=== PATIENT | female | born 1995 | race Caucasian/White ===

== ENCOUNTER 2018-12-19 18:22 | Inpatient (IN) | payer OTHER ==
[~2018-12-19] VITALS: Ht 154.9 cm; Wt 103.6 kg
[2018-12-19 20:28] VITALS: BP 106/52; PULSE 60; RESP 16
[2018-12-19 20:35] VITALS: Ht 154.9 cm; Wt 103.6 kg
--- NOTE | 2018-12-19 21:15 | HP ---
Date/Time of Note Date/Time of Note DATE: 12/19/18 TIME: 21:14 Assessment/Plan VTE Prophylaxis SCD applied (from Ns): Yes Pharmacological prophylaxis: NA/contraindicated Pharm contraindication: low risk/ambulating Assessment/Plan Hospital Course This is a 23-year female [facility] for: #1 symptomatic cholelithiasis: Ultrasound showed gallstones however no signs of any pericholecystic fluid or gallbladder wall thickening. At the current time we will keep the patient n.p.o. except meds, IV fluid hydration with normal saline. Put patient on Zosyn IV every 6 hours for surgical prophylaxis. Will obtain a HIDA scan to further assess, depending on the results will consult general surgery. #2 morbid obesity: We will check hemoglobin A1c, lipid panel, TSH, encourage diet and lifestyle modification #3 iron deficiency anemia: We will check iron stores, patient reportedly takes iron supplements at home, will need to confirm her dosages. #4 DVT GI prophylaxis: SCDs, no GI prophylaxis indicated Further treatment strategy will be implemented as per the clinical course. HPI/ROS Admit Date/Time Admit Date/Time Dec 19, 2018 at 20:15 Hx of Present Illness Chief complaint: Epigastric pain times 2 days This is a 23-year-old female states that 2 days ago drank 4 beers tolerating a family member's birthday and started experiencing abdominal pain.. She began having epigastric pain when she was getting ready for work yesterday. The pain lasted for a few minutes but then the pain got worse. It is nonradiating. She does report nausea. Denies any vomiting. No fevers chills or cough or sore throat. She has had this pain on and off for the last 2-3 years. Pertinent laboratory findings from transfer facility showed: White blood cells 10.4 creatinine 0.55 alk phos 103 lipase 128, leukoesterase 3+, ultrasound of the abdomen showed: Cholelithiasis without pericholecystic fluid or wall thickening or discomfort exhibited by patient. Normal duct. Allergies: NKDA Medications: See NIKKI ABRAMS Const: As per HPI Eyes : No pain discharge or redness or change in visual acuity ENT: No pain, sore throat, congestion, congestion, dysphagia or discharge Respiratory: No shortness of breath, cough, sputum, wheezing, or pleuritic pain Cardiovascular: No chest pain, palpitation, PND, or edema GI : As per HPI Genitourinary: No dysuria, hematuria, flank pain , discharge or CVA tenderness Musculoskeletal: No joint pain, back pain, neck pain, restricted range of motion in neck or joints Skin: No rash, bruising or hives Neuro: No headache, dizziness, syncope, seizure, focal weakness Endocrine: No polyuria, polydipsia, temperature intolerance Psych: No hallucination, depression, anxiety or suicidal ideation PMH/Family/Social Past Medical History Gallstones, iron deficiency anemia Medications Current Medications Sodium Chloride 1,000 ml @ 100 mls/hr Q10H IV ; Start 12/19/18 at 21:11; Status UNV IV Flush (NS 3 ml) 3 ml PER PROTOCOL IV ; Start 12/19/18 at 21:30; Status UNV Ondansetron HCl (Zofran Inj) 4 mg Q6H PRN IV NAUSEA AND/OR VOMITING; Start 12/19/18 at 21:30; Status UNV Metoclopramide HCl (Reglan) 10 mg Q6H PRN IV NAUSEA AND/OR VOMITING; Start at 21:30; Status UNV Acetaminophen (Tylenol Tab) 650 mg Q6H PRN PO PAIN LEVEL 1-3 OR FEVER; Start 12/19/18 at 21:30; Status UNV Hydromorphone HCl (Dilaudid) 0.5 mg Q4H PRN IV SEVERE PAIN LEVEL 7-10; Start 12/19/18 at 21:30; Status UNV Coded Allergies: No Known Allergies (Verified Allergy, Unknown, 12/19/18) Past Surgical History x2, cyst removal from chest wall Family History Significant Family History: no pertinent family hx Social History Alcohol Use: occasionally Smoking Status: Never smoker Drug Use: none Exam/Review of Systems Vital Signs Vitals Vital Signs Date Temp Pulse Resp B/P (MAP) Pulse Ox O2 O2 Flow FiO2 Time Delivery Rate 12/19/18 98.5 60 16 106/52 98 Room Air 20:28 (70) Exam Exam General: Patient is a pleasant female currently lying in bed in no acute distress HEENT: Atraumatic, normocephalic. The pupils are equal, round and reactive. Extraocular motor are intact Neck: Supple with full range of motion. No rigidity or meningismus Chest: Nontender Lungs: Clear to auscultation bilaterally no crackles rales or wheezing Heart: Normal S1-S2, Regular rhythm and rate. No murmur, S3, or S4 Abdomen: Morbidly obese, soft , right upper quadrant pain to palpation as well as epigastric pain to palpation, bowel sounds are present. No guarding no rebound tenderness , No masses or organomegaly. No costovertebral temporal angle mass Extremities: Normal to inspection, no edema no cyanosis Neurologic: Normal mental status, speech normal, cranial nerves II through XII are intact, motor and sensory are intact, no focal weakness RICARDO CASTANEDA Dec 19, 2018 21:15
[2018-12-19] MEDS ORDERED: METOCLOPRAMIDE 10 MG INJ IV PRN (21:30)
[2018-12-19] MEDS ORDERED: NACL 0.9% 3 ML SYG IV SCH (21:30)
[2018-12-19] MEDS ORDERED: ACETAMINOPHEN 325 MG TAB PO PRN (21:30)
[2018-12-19] MEDS: SOD CHLORIDE 0.9% 1,000 ML IV SCH (22:37)
[2018-12-19] MEDS: ONDANSETRON 4 MG INJ IV PRN (22:38)
[2018-12-19] MEDS: HYDROmorphONE 0.5 MG/0.5 ML SYG IV PRN (22:38)
[2018-12-19] MEDS: PIPER-TAZO 3.375 GM IV (PMX) 100 ML IVPB SCH (23:47)
[2018-12-20 01:32] VITALS: BP 96/51; PULSE 56; RESP 16
--- NOTE | 2018-12-20 04:50 | NUR ---
eoss: patient rested throughout the night. medicated with prn pain med,effective. no acute events overnight. afebrile. no episodes of vomitting. kept on npo. ivf running.
[2018-12-20] MEDS: PIPER-TAZO 3.375 GM IV (PMX) 100 ML IVPB SCH ×3 (05:43→17:08)
[2018-12-20] MEDS: HYDROmorphONE 0.5 MG/0.5 ML SYG IV PRN ×3 (06:04→20:22)
[2018-12-20 07:12] VITALS: BP 111/58; PULSE 72; RESP 18
[2018-12-20] MEDS ORDERED: morphine SULFATE/PF (2 MG/2 ML) SYG IV PRN (09:00)
[2018-12-20] MEDS ORDERED: HYDROCODONE/APAP (5/325) TAB PO PRN (09:00)
--- NOTE | 2018-12-20 09:20 | PN ---
Date/Time of Note Date/Time of Note DATE: 12/20/18 TIME: 09:20 Assessment/Plan VTE Prophylaxis Risk score (from Ns)>0 risk: 2 SCD applied (from Ns): Yes SCD contraindicated: low risk/ambulating Pharmacological prophylaxis: NA/contraindicated Pharm contraindication: low risk/ambulating Lines/Catheters IV Catheter Type (from Nrsg): Peripheral IV Assessment/Plan Assessment/Plan 1. Symptomatic cholelithiasis vs biliary colic - US from OSH showing gallstones but CBD normal and no sludge or GB wall thickening appreciated - HIDA scan ordered and negative for acute abnormalities - Will try feeding patient to see if able to tolerated. If not, may need to discuss case with General surgery. - pain control 2. Obesity - dietary modification encouraged 3. Iron deficiency - iron levels noted - MCV 77 - will need iron supplements on discharge 4. Disposition - Monitor improvement in abdominal pain and advance diet as tolerated. If pain persists will possible consult gen surgery Result Diagram: 12/19/18215412/[id number]/182154 Results 24hrs Laboratory Tests Test 12/19/18 21:55 White Blood Count 11.2 H Red Blood Count 4.53 Hemoglobin 11.2 L Hematocrit 35.1 L Mean Corpuscular Volume 77.5 L Mean Corpuscular Hemoglobin 24.7 L Mean Corpuscular Hemoglobin Concent 31.9 L Red Cell Distribution Width 15.1 H Platelet Count 302 Mean Platelet Volume 10.2 Immature Granulocytes % 0.300 Neutrophils % 64.8 Lymphocytes % 28.2 Monocytes % 5.0 Eosinophils % 1.5 Basophils % 0.2 Nucleated Red Blood Cells % 0.0 Immature Granulocytes # 0.030 Neutrophils # 7.2 Lymphocytes # 3.2 H Monocytes # 0.6 Eosinophils # 0.2 Basophils # 0.0 Nucleated Red Blood Cells # 0.0 Sodium Level 139 Potassium Level 3.2 L Chloride Level 107 Carbon Dioxide Level 23 Anion Gap 9 Blood Urea Nitrogen 10 Creatinine 0.51 Est Glomerular Filtrat Rate mL/min > 60 Glucose Level 82 Hemoglobin A1c 5.0 Calcium Level 8.8 Magnesium Level 2.0 Total Bilirubin 0.2 Direct Bilirubin 0.00 Indirect Bilirubin 0.2 Aspartate Amino Transf (AST/SGOT) 17 Alanine Aminotransferase (ALT/SGPT) 26 Alkaline Phosphatase 86 Total Protein 7.4 Albumin 3.8 Globulin 3.60 H Albumin/Globulin Ratio 1.05 Triglycerides Level 94 Cholesterol Level 105 LDL Cholesterol, Calculated 58 HDL Cholesterol 28 L Cholesterol/HDL Ratio 3.7 Thyroid Stimulating Hormone (TSH) 1.150 Serum HCG, Qualitative NEGATIVE Subjective 24 Hr Interval Summary Free Text/Dictation Patient still with RUQ pain but relief after given pain control. States she has been experiencing this pain for the past 2 years. worsening with food but prior to yesterdays episode had not eaten anything substantial. Exam/Review of Systems Vital Signs Vitals Vital Signs Date Temp Pulse Resp B/P (MAP) Pulse Ox O2 O2 Flow FiO2 Time Delivery Rate 12/20/18 98.2 72 18 111/58 96 07:12 (75) 12/20/18 Room Air 01:32 Intake and Output 12/19/18 12/19/18 12/20/18 1515:00 23:00 07:00 IntakeIntake Total 900 ml BalanceBalance 900 ml Exam General: Patient is a pleasant female currently lying in bed in no acute distress Chest: Nontender Lungs: Clear to auscultation bilaterally no crackles rales or wheezing Heart: Normal S1-S2, Regular rhythm and rate. No murmur, S3, or S4 Abdomen: Morbidly obese, soft , right upper quadrant pain to palpation as well as epigastric pain to palpation, bowel sounds are present. No guarding no rebound tenderness Extremities: Normal to inspection, no edema no cyanosis Medications Medications Current Medications Sodium Chloride 1,000 ml @ 100 mls/hr Q10H IV Last administered on 12/19/18at 22:37; Admin Dose 100 MLS/HR; Start 12/19/18 at 21:11 IV Flush (NS 3 ml) 3 ml PER PROTOCOL IV Last administered on 12/19/18at 22:37; Admin Dose 3 ML; Start 12/19/18 at 21:30 Ondansetron HCl (Zofran Inj) 4 mg Q6H PRN IV NAUSEA AND/OR VOMITING Last administered on 12/19/18at 22:38; Admin Dose 4 MG; Start 12/19/18 at 21:30 Metoclopramide HCl (Reglan) 10 mg Q6H PRN IV NAUSEA AND/OR VOMITING; Start 12/19/18 at 21:30 Acetaminophen (Tylenol Tab) 650 mg Q6H PRN PO PAIN LEVEL 1-3 OR FEVER Last administered on 12/20/18at 08:25; Admin Dose 650 MG; Start 12/19/18 at 21:30 Hydromorphone HCl (Dilaudid) 0.5 mg Q4H PRN IV SEVERE PAIN LEVEL 7-10 Last administered on 12/20/18at 06:04; Admin Dose 0.5 MG; Start 12/19/18 at 21:30 Piperacillin Sod/ Tazobactam Sod 100 ml @ 200 mls/hr Q6 IVPB Last administered on 12/20/18at 05:43; Admin Dose 200 MLS/HR; Start 12/20/18 at 00:00 Morphine Sulfate (morphine SULFATE (PF)) 2 mg Q4H PRN IV PAIN LEVEL 4-6; Start 12/20/18 at 09:00 Acetaminophen/ Hydrocodone Bitart ([place] (5/325)) 1 tab Q4H PRN PO MODERATE PAIN LEVEL 4-6; Start 12/20/18 at 09:00 ELAINE HERNANDEZ MD Dec 20, 2018 09:20
[2018-12-20] MEDS: SOD CHLORIDE 0.9% 1,000 ML IV SCH ×2 (11:20→17:08)
[2018-12-20] MEDS: ONDANSETRON 4 MG INJ IV PRN ×2 (14:20→21:32)
[2018-12-20 15:43] VITALS: BP 101/62; PULSE 78; RESP 19
--- NOTE | 2018-12-20 18:08 | NUR ---
END OF SHIFT: PATIENT LYING BED, PATIENT MEDICATED FOR PAIN FREQUENTLY DURING SHIFT, ALTERNATING ORAL AND IV PAIN MEDICATIONS, PATIENT HAS MODERATE PAIN IN ABDOMEN. VSS DURING SHIFT. HIDA SCAN DONE IN AM. PATIENT GIVEN CLEAR LIQUIDS BUT UNABLE TO TOLERATE, DR. HERNANDEZ NOTIFIED. LIKELY SURGICAL CONSULT FOR TOMORROW IF PATIENT COULDNT TOLERATE LIQUIDS OR FOOD, PER DR. HERNANDEZ. HOURLY ROUNDING DONE DURING SHIFT, CALL STOUT WITHIN REACH, FALL PRECAUTIONS OBSERVED, WILL ENDORSE TO NIGHT RN.
[2018-12-20 19:15] VITALS: BP 91/44; PULSE 77; RESP 16
[2018-12-21] VITALS (7 sets, daily range): BP systolic 105–136; BP diastolic 56–76; PULSE 60–71; RESP 16–20
[2018-12-21] MEDS: PIPER-TAZO 3.375 GM IV (PMX) 100 ML IVPB SCH ×4 (00:48→17:52)
[2018-12-21] MEDS: HYDROmorphONE 0.5 MG/0.5 ML SYG IV PRN ×5 (00:51→20:32)
[2018-12-21] MEDS: SOD CHLORIDE 0.9% 1,000 ML IV SCH (03:56)
--- NOTE | 2018-12-21 05:13 | NUR ---
end of shift reports: patient's pain is controlled, had episodes of nausea and vomitting,medicated with zofran IV. advised patient npo for now. afebrile. walks to the bathroom.
[2018-12-21] MEDS: ONDANSETRON 4 MG INJ IV PRN (06:17)
--- NOTE | 2018-12-21 09:16 | PN ---
Date/Time of Note Date/Time of Note DATE: 12/21/18 TIME: 09:16 Assessment/Plan VTE Prophylaxis Risk score (from Nsg)>0 risk: 2 SCD applied (from Ns): Yes SCD contraindicated: low risk/ambulating Pharmacological prophylaxis: NA/contraindicated Pharm contraindication: low risk/ambulating Lines/Catheters IV Catheter Type (from Nrsg): Peripheral IV Assessment/Plan Assessment/Plan 1. RUQ pain with N/V - GI consulted for further recommendations and plans for EGD. If negative, will order MRCP - Surgery consulted and recommended HIDA with CCK and GI consultation - US from OSH showing gallstones but CBD normal and no sludge or GB wall thickening appreciated - HIDA scan ordered and negative for acute abnormalities - pain control 2. Obesity - dietary modification encouraged 3. Iron deficiency - iron levels noted - MCV 77 - will need iron supplements on discharge 4. Disposition - GI and Surgical evaluation planned for today - HIDA with CCK ordered per Surgery recommendations Result Diagram: 12/21/18 0430 12/21/18 0430 Results 24hrs Laboratory Tests Test 12/21/18 04:30 White Blood Count 9.9 Red Blood Count 4.42 Hemoglobin 11.0 L Hematocrit 34.1 L Mean Corpuscular Volume 77.1 L Mean Corpuscular Hemoglobin 24.9 L Mean Corpuscular Hemoglobin Concent 32.3 Red Cell Distribution Width 14.8 H Platelet Count 276 Mean Platelet Volume 10.1 Immature Granulocytes % 0.200 Neutrophils % 66.3 Lymphocytes % 26.1 Monocytes % 5.5 Eosinophils % 1.7 Basophils % 0.2 Nucleated Red Blood Cells % 0.0 Immature Granulocytes # 0.020 Neutrophils # 6.6 Lymphocytes # 2.6 Monocytes # 0.6 Eosinophils # 0.2 Basophils # 0.0 Nucleated Red Blood Cells # 0.0 Sodium Level 145 H Potassium Level 3.5 Chloride Level 109 Carbon Dioxide Level 23 Anion Gap 13 Blood Urea Nitrogen 8 Creatinine 0.67 Est Glomerular Filtrat Rate mL/min > 60 Glucose Level 89 Calcium Level 8.7 Magnesium Level 2.2 Total Bilirubin 0.2 Direct Bilirubin 0.00 Indirect Bilirubin 0.2 Aspartate Amino Transf (AST/SGOT) 16 Alanine Aminotransferase (ALT/SGPT) 20 Alkaline Phosphatase 76 Total Protein 6.9 Albumin 3.5 Globulin 3.40 H Albumin/Globulin Ratio 1.02 Subjective 24 Hr Interval Summary Free Text/Dictation Patient still with nausea and vomiting with any PO intake. Pain in RUQ persists but improves after pain control given. Exam/Review of Systems Vital Signs Vitals Vital Signs Date Temp Pulse Resp B/P (MAP) Pulse Ox O2 O2 Flow FiO2 Time Delivery Rate 12/21/18 98.2 61 16 105/56 96 Room Air 01:04 (72) Intake and Output 12/20/18 12/20/18 12/21/18 1515:00 23:00 07:00 IntakeIntake Total 1100 ml 600 ml 800 ml BalanceBalance 1100 ml 600 ml 800 ml Exam General: Pleasant female currently lying in bed in no acute distress Chest: Nontender Lungs: Clear to auscultation bilaterally no crackles rales or wheezing Heart: Normal S1-S2, Regular rhythm and rate. No murmur, S3, or S4 Abdomen: Morbidly obese, soft , right upper quadrant pain to palpation as well as epigastric pain to palpation, bowel sounds are present. No rebound or guarding Extremities: Normal to inspection, no edema no cyanosis Medications Medications Current Medications Sodium Chloride 1,000 ml @ 100 mls/hr Q10H IV Last administered on 12/21/18 03:56; Admin Dose 100 MLS/HR; Start 12/19/18 at 21:11 IV Flush (NS 3 ml) 3 ml PER PROTOCOL IV Last administered on 12/19/18at 22:37; Admin Dose 3 ML; Start 12/19/18 at 21:30 Ondansetron HCl (Zofran Inj) 4 mg Q6H PRN IV NAUSEA AND/OR VOMITING Last administered on 12/21/18 06:17; Admin Dose 4 MG; Start 12/19/18 at 21:30 Metoclopramide HCl (Reglan) 10 mg Q6H PRN IV NAUSEA AND/OR VOMITING; Start 12/19/18 at 21:30 Acetaminophen (Tylenol Tab) 650 mg Q6H PRN PO PAIN LEVEL 1-3 OR FEVER Last administered on 12/20/18 08:25; Admin Dose 650 MG; Start 12/19/18 at 21:30 Hydromorphone HCl (Dilaudid) 0.5 mg Q4H PRN IV SEVERE PAIN LEVEL 7-10 Last administered on 12/21/18 06:18; Admin Dose 0.5 MG; Start 12/19/18 at 21:30 Piperacillin Sod/ Tazobactam Sod 100 ml @ 200 mls/hr Q6 IVPB Last administered on 12/21/18at 06:15; Admin Dose 200 MLS/HR; Start 12/20/18 at 00:00 Morphine Sulfate (morphine SULFATE (PF)) 2 mg Q4H PRN IV PAIN LEVEL 4-6; Start 12/20/18 at 09:00 Acetaminophen/ Hydrocodone Bitart ([place] (5/325)) 1 tab Q4H PRN PO MODERATE PAIN LEVEL 4-6 Last administered on 12/20/18at 14:20; Admin Dose 1 TAB; Start 12/20/18 at 09:00 Potassium Chloride 100 ml @ 50 mls/hr Q2H IVPB ; Start 12/21/18 at 11:00; Stop 12/21/18 at 14:59 ELAINE HERNANDEZ MD Dec 21, 2018 09:16
[2018-12-21] MEDS: POTASSIUM CHLORIDE 100 ML IVPB SCH ×2 (11:12→13:00)
[2018-12-21] MEDS: DEXTROSE 5%-0.45% NACL 1,000 ML IV SCH (13:16)
--- NOTE | 2018-12-21 14:53 | CONS ---
Date/Time of Note Date/Time of Note DATE: 12/21/18 TIME: 14:30 Assessment/Plan Assessment/Plan Hospital Course Summary Assessment and Plan: Assessment: Epigastric pain with excessive NSAID use Cholelithiasis -Consider symptomatic cholelithiasis versus other Microcytic anemia -chronic Obesity Plan: P.o. EGD today If negative will obtain MRCP Endoscopy - risks/benefits/alternatives/indications of procedure and sedat ion/anesthesia discussed with patient who states understanding and gives informed consent to proceed. She is seen in collaboration with Dr. Gordon Result Diagram: 12/21/18 0430 12/21/18 0430 Results 24hrs Laboratory Tests Test 12/21/18 04:30 White Blood Count 9.9 Red Blood Count 4.42 Hemoglobin 11.0 L Hematocrit 34.1 L Mean Corpuscular Volume 77.1 L Mean Corpuscular Hemoglobin 24.9 L Mean Corpuscular Hemoglobin Concent 32.3 Red Cell Distribution Width 14.8 H Platelet Count 276 Mean Platelet Volume 10.1 Immature Granulocytes % 0.200 Neutrophils % 66.3 Lymphocytes % 26.1 Monocytes % 5.5 Eosinophils % 1.7 Basophils % 0.2 Nucleated Red Blood Cells % 0.0 Immature Granulocytes # 0.020 Neutrophils # 6.6 Lymphocytes # 2.6 Monocytes # 0.6 Eosinophils # 0.2 Basophils # 0.0 Nucleated Red Blood Cells # 0.0 Sodium Level 145 H Potassium Level 3.5 Chloride Level 109 Carbon Dioxide Level 23 Anion Gap 13 Blood Urea Nitrogen 8 Creatinine 0.67 Est Glomerular Filtrat Rate mL/min > 60 Glucose Level 89 Calcium Level 8.7 Magnesium Level 2.2 Total Bilirubin 0.2 Direct Bilirubin 0.00 Indirect Bilirubin 0.2 Aspartate Amino Transf (AST/SGOT) 16 Alanine Aminotransferase (ALT/SGPT) 20 Alkaline Phosphatase 76 Total Protein 6.9 Albumin 3.5 Globulin 3.40 H Albumin/Globulin Ratio 1.02 CC: JEROME GORDON MD ; Consultation Date/Type/Reason Admit Date/Time Dec 19, 2018 at 20:15 Date of Consultation: Dec 21, 2018 Type of Consult GI Reason for Consultation Epigastric pain Hx of Present Illness Is a 23-year-old female with past medical history of back pain who presented to an outside hospital with complaints of severe epigastric pain. Patient states she went to work on Wednesday to having severe epigastric pain with nausea and vomiting. Pain was so bad she left work and went to the ED. Patient states she takes ibuprofen 800 mg 1-2 times a day 3 times a week for the past 4 months for back pain. She also does not usually drink but drink about 4 beers tonight celebrating a family member's birthday. At the outside hospital she underwent an abdominal ultrasound which showed cholelithiasis without pericholecystic fluid or wall thickening or just comfort exhibited by the patient, normal duct with the examination was somewhat less than optimal due to patient's body habitus. Here at [facility] patient had a HIDA scan which was negative and showed patent common bile duct with normal visualization of the small bowel. Labs show microcytic anemia with a hemoglobin of 11.0, hematocrit 34.1, MCV 7 7.1, MCH 24.9. LFTs are all within normal limits, creatinine is 0.67, BUN is 8. Patient denies hematochezia, melena, diarrhea, constipation. Currently no combines of nausea or vomiting. She attempted to have a clear liquid diet last night but wa s unable to tolerate secondary to pain and nausea. Not been able to eat or drink since last night and therefore has been n.p.o. throughout the day given history of excessive NSAID use and epigastric pain we will plan for EGD today. Review of Systems: [A 12 system, review was conducted and is negative except as noted in the HPI or here.] Past Medical History Medications Current Medications IV Flush (NS 3 ml) 3 ml PER PROTOCOL IV Last administered on 12/19/18at 22:37; Admin Dose 3 ML; Start 12/19/18 at 21:30 Ondansetron HCl (Zofran Inj) 4 mg Q6H PRN IV NAUSEA AND/OR VOMITING Last administered on 12/21/18at 06:17; Admin Dose 4 MG; Start 12/19/18 at 21:30 Metoclopramide HCl (Reglan) 10 mg Q6H PRN IV NAUSEA AND/OR VOMITING Last administered on 12/21/18at 11:11; Admin Dose 10 MG; Start 12/19/18 at 21:30 Acetaminophen (Tylenol Tab) 650 mg Q6H PRN PO PAIN LEVEL 1-3 OR FEVER Last administered on 12/20/18at 08:25; Admin Dose 650 MG; Start 12/19/18 at 21:30 Hydromorphone HCl (Dilaudid) 0.5 mg Q4H PRN IV SEVERE PAIN LEVEL 7-10 Last administered on 12/21/18at 10:05; Admin Dose 0.5 MG; Start 12/19/18 at 21:30 Piperacillin Sod/ Tazobactam Sod 100 ml @ 200 mls/hr Q6 IVPB Last administered on 12/21/18at 13:16; Admin Dose 200 MLS/HR; Start 12/20/18 at 00:00 Morphine Sulfate (morphine SULFATE (PF)) 2 mg Q4H PRN IV PAIN LEVEL 4-6; Start 12/20/18 at 09:00 Acetaminophen/ Hydrocodone Bitart ([place] (5/325)) 1 tab Q4H PRN PO MODERATE PAIN LEVEL 4-6 Last administered on 12/20/18at 14:20; Admin Dose 1 TAB; Start 12/20/18 at 09:00 Potassium Chloride 100 ml @ 50 mls/hr Q2H IVPB Last administered on 12/21/18at 11:12; Admin Dose 50 MLS/HR; Start 12/21/18 at 11:00; Stop 12/21/18 at 14:59 Dextrose/Sodium Chloride 1,000 ml @ 70 mls/hr [id number] IV Last administered on 12/21/18at 13:16; Admin Dose 70 MLS/HR; Start 12/21/18 at 11:30 Allergies: Coded Allergies: No Known Allergies (Verified Allergy, Unknown, 12/19/18) Social History Alcohol Use: occasionally Smoking Status: Never smoker Drug Use: none Exam/Review of Systems Vital Signs Vitals Vital Signs Date Temp Pulse Resp B/P (MAP) Pulse Ox O2 O2 Flow FiO2 Time Delivery Rate 12/21/18 97.4 60 16 107/60 97 Room Air 14:12 (76) Intake and Output 12/20/18 12/20/18 12/21/18 1515:00 23:00 07:00 IntakeIntake Total 1100 ml 600 ml 800 ml BalanceBalance 1100 ml 600 ml 800 ml Exam PHYSICAL EXAMINATION: GENERAL: Obese, alert & oriented x 3, in no acute distress SKIN: No lesions EYES: Pupils equal reactive to light, no discharge. EARS/NOSE AND THROAT: Ears normal, nose normal, oropharynx normal. NECK: Supple, no masses CHEST: Inspection within normal limits. CARDIOVASCULAR: Heart: Regular rate and rhythm RESPIRATORY: Lungs clear to auscultation GASTROINTESTINAL AND LIVER: Abdomen: Soft, epigastric pain, non-distended, no hernias, no masses, no organomegaly, no ascites, no guarding, no rebound tenderness, normoactive bowel sounds. Rectal: Deferred. GENITOURINARY:Female genitalia within normal limits. Medications Medications Current Medications IV Flush (NS 3 ml) 3 ml PER PROTOCOL IV Last administered on 12/19/18 22:37; Admin Dose 3 ML; Start 12/19/18 at 21:30 Ondansetron HCl (Zofran Inj) 4 mg Q6H PRN IV NAUSEA AND/OR VOMITING Last administered on 12/21/18 06:17; Admin Dose 4 MG; Start 12/19/18 at 21:30 Metoclopramide HCl (Reglan) 10 mg Q6H PRN IV NAUSEA AND/OR VOMITING Last administered on 12/21/18 11:11; Admin Dose 10 MG; Start 12/19/18 at 21:30 Acetaminophen (Tylenol Tab) 650 mg Q6H PRN PO PAIN LEVEL 1-3 OR FEVER Last administered on 12/20/18 08:25; Admin Dose 650 MG; Start 12/19/18 at 21:30 Hydromorphone HCl (Dilaudid) 0.5 mg Q4H PRN IV SEVERE PAIN LEVEL 7-10 Last administered on 12/21/18 10:05; Admin Dose 0.5 MG; Start 12/19/18 at 21:30 Piperacillin Sod/ Tazobactam Sod 100 ml @ 200 mls/hr Q6 IVPB Last administered on 12/21/18at 13:16; Admin Dose 200 MLS/HR; Start 12/20/18 at 00:00 Morphine Sulfate (morphine SULFATE (PF)) 2 mg Q4H PRN IV PAIN LEVEL 4-6; Start 12/20/18 at 09:00 Acetaminophen/ Hydrocodone Bitart ([place] (5/325)) 1 tab Q4H PRN PO MODERATE PAIN LEVEL 4-6 Last administered on 12/20/18 14:20; Admin Dose 1 TAB; Start 12/20/18 at 09:00 Potassium Chloride 100 ml @ 50 mls/hr Q2H IVPB Last administered on 1/23/19at 11:12; Admin Dose 50 MLS/HR; Start 12/21/18 at 11:00; Stop 12/21/18 at 14:59 Dextrose/Sodium Chloride 1,000 ml @ 70 mls/hr [id number] IV Last administered on 12/21/18at 13:16; Admin Dose 70 MLS/HR; Start 12/21/18 at 11:30 GOPAL ADAMES Dec 21, 2018 14:42
--- NOTE | 2018-12-21 15:27 | CONS ---
Date/Time of Note Date/Time of Note DATE: 12/21/18 TIME: 15:22 Assessment/Plan Assessment/Plan Assessment/Plan Patient has gallstones and epigastric abdominal pain. Upper GI endoscopy is pending tonight. If negative I believe it is reasonable to recommend laparoscopic cholecystectomy in this patient who has been symptomatic now for 4 days. I have discussed the procedure, outcomes, alternatives and risks in detail with the patient who has an excellent understanding of the nature of her situation and wishes to undergo cholecystectomy as soon as possible, hoping that this will alleviate her symptoms. These recommendations may be modified following upper GI endoscopy findings Result Diagram: 12/21/18 0430 12/21/18 0430 Results 24hrs Laboratory Tests Test 12/21/18 04:30 White Blood Count 9.9 Red Blood Count 4.42 Hemoglobin 11.0 L Hematocrit 34.1 L Mean Corpuscular Volume 77.1 L Mean Corpuscular Hemoglobin 24.9 L Mean Corpuscular Hemoglobin Concent 32.3 Red Cell Distribution Width 14.8 H Platelet Count 276 Mean Platelet Volume 10.1 Immature Granulocytes % 0.200 Neutrophils % 66.3 Lymphocytes % 26.1 Monocytes % 5.5 Eosinophils % 1.7 Basophils % 0.2 Nucleated Red Blood Cells % 0.0 Immature Granulocytes # 0.020 Neutrophils # 6.6 Lymphocytes # 2.6 Monocytes # 0.6 Eosinophils # 0.2 Basophils # 0.0 Nucleated Red Blood Cells # 0.0 Sodium Level 145 H Potassium Level 3.5 Chloride Level 109 Carbon Dioxide Level 23 Anion Gap 13 Blood Urea Nitrogen 8 Creatinine 0.67 Est Glomerular Filtrat Rate mL/min > 60 Glucose Level 89 Calcium Level 8.7 Magnesium Level 2.2 Total Bilirubin 0.2 Direct Bilirubin 0.00 Indirect Bilirubin 0.2 Aspartate Amino Transf (AST/SGOT) 16 Alanine Aminotransferase (ALT/SGPT) 20 Alkaline Phosphatase 76 Total Protein 6.9 Albumin 3.5 Globulin 3.40 H Albumin/Globulin Ratio 1.02 Consultation Date/Type/Reason Admit Date/Time Dec 19, 2018 at 20:15 Date of Consultation: Dec 21, 2018 Type of Consult General surgery Reason for Consultation Gallstones and intractable postprandial abdominal pain and vomiting Hx of Present Illness The patient is a morbidly obese 23-year-old female who has known gallstones for approximately 1 year. She is one-year status post section. 4 days ago she developed epigastric abdominal pain, but went to work. The pain intensified in severity, and the patient was evaluated at [facility] where an a bdominal ultrasound showed gallstones without gallbladder wall thickening. HIDA scan was negative. She is transferred here for continuance of care. She continues to have intractable nausea and vomiting after even clear liquids. She has been seen in GI consultation and will be undergoing upper GI endoscopy today. She has had no fevers chills or jaundice. Her LFTs are normal. Constitutional: no complaints Eyes: no complaints ENT: no complaints Respiratory: no complaints Cardiovascular: no complaints Gastrointestinal: pain (The gastrium), nausea Genitourinary: no complaints Musculoskeletal: no complaints Neurologic: no complaints Endocrine: no complaints Immunologic: no complaints Past Medical History Medical History: gallstones Medications Current Medications IV Flush (NS 3 ml) 3 ml PER PROTOCOL IV Last administered on 12/19/18at 22:37; Admin Dose 3 ML; Start 12/19/18 at 21:30 Ondansetron HCl (Zofran Inj) 4 mg Q6H PRN IV NAUSEA AND/OR VOMITING Last administered on 12/21/18at 06:17; Admin Dose 4 MG; Start 12/19/18 at 21:30 Metoclopramide HCl (Reglan) 10 mg Q6H PRN IV NAUSEA AND/OR VOMITING Last administered on 12/21/18at 11:11; Admin Dose 10 MG; Start 12/19/18 at 21:30 Acetaminophen (Tylenol Tab) 650 mg Q6H PRN PO PAIN LEVEL 1-3 OR FEVER Last administered on 12/20/18at 08:25; Admin Dose 650 MG; Start 12/19/18 at 21:30 Hydromorphone HCl (Dilaudid) 0.5 mg Q4H PRN IV SEVERE PAIN LEVEL 7-10 Last administered on 12/21/18at 10:05; Admin Dose 0.5 MG; Start 12/19/18 at 21:30 Piperacillin Sod/ Tazobactam Sod 100 ml @ 200 mls/hr Q6 IVPB Last administered on 12/21/18at 13:16; Admin Dose 200 MLS/HR; Start 12/20/18 at 00:00 Morphine Sulfate (morphine SULFATE (PF)) 2 mg Q4H PRN IV PAIN LEVEL 4-6; Start 12/20/18 at 09:00 Acetaminophen/ Hydrocodone Bitart ([place] (5/325)) 1 tab Q4H PRN PO MODERATE PAIN LEVEL 4-6 Last administered on 12/20/18at 14:20; Admin Dose 1 TAB; Start 12/20/18 at 09:00 Dextrose/Sodium Chloride 1,000 ml @ 70 mls/hr [id number] IV Last administered on 12/21/18at 13:16; Admin Dose 70 MLS/HR; Start 12/21/18 at 11:30 Pantoprazole (Protonix Iv) 40 mg DAILY@06 IV ; Start 12/22/18 at 06:00 Sincalide (Kinevac) 5 mcg DURING PROCEDURE ONCE IV ; Start 12/21/18 at 15:30; Stop 12/21/18 at 15:31 Allergies: Coded Allergies: No Known Allergies (Verified Allergy, Unknown, 12/19/18) Past Surgical History Past Surgical Hx: other ( section x2) Family History Significant Family History: no pertinent family hx Social History Alcohol Use: occasionally Smoking Status: Never smoker Drug Use: none Exam/Review of Systems Vital Signs Vitals Vital Signs Date Temp Pulse Resp B/P (MAP) Pulse Ox O2 O2 Flow FiO2 Time Delivery Rate 12/21/18 97.4 60 16 107/60 97 Room Air 14:12 (76) Intake and Output 12/20/18 12/20/18 12/21/18 1414:59 22:59 06:59 IntakeIntake Total 1100 ml 600 ml 800 ml BalanceBalance 1100 ml 600 ml 800 ml Exam Constitutional: alert, oriented Psych: no complaints Head: normocephalic Eyes: nl conjunctiva ENMT: nl external ears & nose Neck: supple Respiratory: clear to auscultation Cardiovascular: regular rate and rhythm Gastrointestinal: soft (Obese) Musculoskeletal: nl extremities to inspection Extremities: normal pulses Neurological: [employer]BER II-XII intact Skin: nl turgor Lymph: nl lymph nodes Medications Medications Current Medications IV Flush (NS 3 ml) 3 ml PER PROTOCOL IV Last administered on 12/19/18at 22:37; Admin Dose 3 ML; Start 12/19/18 at 21:30 Ondansetron HCl (Zofran Inj) 4 mg Q6H PRN IV NAUSEA AND/OR VOMITING Last administered on 12/21/18at 06:17; Admin Dose 4 MG; Start 12/19/18 at 21:30 Metoclopramide HCl (Reglan) 10 mg Q6H PRN IV NAUSEA AND/OR VOMITING Last administered on 12/21/18at 11:11; Admin Dose 10 MG; Start 12/19/18 at 21:30 Acetaminophen (Tylenol Tab) 650 mg Q6H PRN PO PAIN LEVEL 1-3 OR FEVER Last administered on 12/20/18at 08:25; Admin Dose 650 MG; Start 12/19/18 at 21:30 Hydromorphone HCl (Dilaudid) 0.5 mg Q4H PRN IV SEVERE PAIN LEVEL 7-10 Last administered on 12/21/18at 10:05; Admin Dose 0.5 MG; Start 12/19/18 at 21:30 Piperacillin Sod/ Tazobactam Sod 100 ml @ 200 mls/hr Q6 IVPB Last administered on 12/21/18at 13:16; Admin Dose 200 MLS/HR; Start 12/20/18 at 00:00 Morphine Sulfate (morphine SULFATE (PF)) 2 mg Q4H PRN IV PAIN LEVEL 4-6; Start 12/20/18 at 09:00 Acetaminophen/ Hydrocodone Bitart ([place] (5/325)) 1 tab Q4H PRN PO MODERATE PAIN LEVEL 4-6 Last administered on 12/20/18at 14:20; Admin Dose 1 TAB; Start 12/20/18 at 09:00 Dextrose/Sodium Chloride 1,000 ml @ 70 mls/hr [id number] IV Last administered on 12/21/18at 13:16; Admin Dose 70 MLS/HR; Start 12/21/18 at 11:30 Pantoprazole (Protonix Iv) 40 mg DAILY@06 IV ; Start 12/22/18 at 06:00 Sincalide (Kinevac) 5 mcg DURING PROCEDURE ONCE IV ; Start 12/21/18 at 15:30; Stop 12/21/18 at 15:31 VIANEY RINCON MD Dec 21, 2018 15:27
[2018-12-21] MEDS ORDERED: SINCALIDE 5 MCG INJ IV ONE (15:30)
--- NOTE | 2018-12-21 16:04 | PREAC ---
Date/Time of Note Date/Time of Note DATE: 12/21/18 TIME: 16:03 Anesthesia Eval and Record Evaluation Time Pre-Procedure Interview DATE: 12/21/18 TIME: 16:03 Age 23 Sex female NPO: 8 hrs Preoperative diagnosis gerd Planned procedure EGD Past Medical History Past Medical History: Includes GI: Morbid obesity Surgery & Anesthesia Issues No known issue Meds Anticoagulation: No Beta Deirdre within 24 hr: No Reason Beta Deirdre not given: Pt. not on B-Deirdre Current Medications IV Flush (NS 3 ml) 3 ml PER PROTOCOL IV Last administered on 12/19/18at 22:37; Admin Dose 3 ML; Start 12/19/18 at 21:30 Ondansetron HCl (Zofran Inj) 4 mg Q6H PRN IV NAUSEA AND/OR VOMITING Last administered on 12/21/18at 06:17; Admin Dose 4 MG; Start 12/19/18 at 21:30 Metoclopramide HCl (Reglan) 10 mg Q6H PRN IV NAUSEA AND/OR VOMITING Last administered on 12/21/18at 11:11; Admin Dose 10 MG; Start 12/19/18 at 21:30 Acetaminophen (Tylenol Tab) 650 mg Q6H PRN PO PAIN LEVEL 1-3 OR FEVER Last administered on 12/20/18at 08:25; Admin Dose 650 MG; Start 12/19/18 at 21:30 Hydromorphone HCl (Dilaudid) 0.5 mg Q4H PRN IV SEVERE PAIN LEVEL 7-10 Last administered on 12/21/18at 10:05; Admin Dose 0.5 MG; Start 12/19/18 at 21:30 Piperacillin Sod/ Tazobactam Sod 100 ml @ 200 mls/hr Q6 IVPB Last administered on 12/21/18at 13:16; Admin Dose 200 MLS/HR; Start 12/20/18 at 00:00 Morphine Sulfate (morphine SULFATE (PF)) 2 mg Q4H PRN IV PAIN LEVEL 4-6; Start 12/20/18 at 09:00 Acetaminophen/ Hydrocodone Bitart ([place] (5/325)) 1 tab Q4H PRN PO MODERATE PAIN LEVEL 4-6 Last administered on 12/20/18at 14:20; Admin Dose 1 TAB; Start 12/20/18 at 09:00 Dextrose/Sodium Chloride 1,000 ml @ 70 mls/hr [id number] IV Last administered on 12/21/18at 13:16; Admin Dose 70 MLS/HR; Start 12/21/18 at 11:30 Pantoprazole (Protonix Iv) 40 mg DAILY@06 IV ; Start 12/22/18 at 06:00 Meds reviewed: Yes Allergies Coded Allergies: No Known Allergies (Verified Allergy, Unknown, 12/19/18) Allergies Reviewed: Yes Labs/Studies Labs Reviewed: Reviewed by anesthesiologist Result Diagram: 12/21/18 0430 12/21/18 0430 Laboratory Tests 12/21/18 04:30 test: Negative Studies: ECG Pre-procedure Exam Last vitals Vital Signs Date Temp Pulse Resp B/P (MAP) Pulse Ox O2 O2 Flow FiO2 Time Delivery Rate 12/21/18 97.9 71 20 111/58 99 Room Air 15:59 (75) Airway: Adequate mouth opening, Adequate thyromental dist Mallampati: Mallampati II Teeth: Normal Lung: Normal Heart: Normal ASA Physical Status ASA physical status: 2 Emergency: None Planned Anesthetic General/MAC: MAC Pre-operative Attestations Prior to commencing anesthesia and surgery, the patient was re-evaluated, there was verification of: *The patient's identity *The results of appropriate recent lab work and preoperative vital signs *The above evaluation not changing prior to induction *Anesthetic plan, risk benefits, alternative and complications discussed with patient/family; questions answered; patient/family understands, accepts and wishes to proceed. JORDYN CULLEN Dec 21, 2018 16:04
[2018-12-21] MEDS ORDERED: PROPOFOL 40 ML ONE (16:06)
--- NOTE | 2018-12-21 16:19 | NUR ---
RECEIVED FROM GI LAB S/P EGD WITH BIOPSY. DENIES PAIN AT PRESENT. IV INFUSING IN RT. FA. # 22 ANGIOCATH. VOIDED FREELY.
--- NOTE | 2018-12-21 16:25 | HPN ---
Date/Time of Note Date/Time of Note DATE: 12/21/18 TIME: 16:04 Interval H&P Admission Note Pt. seen H&P reviewed: No system changes JEROME MANCUSO MD Dec 21, 2018 16:25
[2018-12-21] MEDS ORDERED: FENTAnyl 50 MCG/ML VIAL IV ONE (16:30)
--- NOTE | 2018-12-21 17:06 | NUR ---
REPORT GIVEN TO KAMLA WORLEY TRANSPORTED TO . ACCOMPANIED BY TRANSPORT IN STABLE CONDITION. DENIES PAIN AT PRESENT.
--- NOTE | 2018-12-21 17:13 | NUR ---
RN NOTES RECEIVED PT FOR PACU, S/P EGD WITH BX, NO C/O PAIN AT THIS TIME, VS WITHIN NORMAL LIMITS. HIDA SCAN WAS CANCELLED BY DR RINCON, PLAN FOR APPLE HAWLEY. PT IS NPO, PAIN CONTROLLED WITH PAIN MEDICATION, CALL LIGHT WITHIN EASY REACH, ENCOURAGED PT TO CALL FOR ASSISTANCE.
--- NOTE | 2018-12-21 18:43 | PAC ---
Date/Time of Note Date/Time of Note DATE: 12/21/18 TIME: 18:42 Post-Anesthesia Notes Post-Anesthesia Note Last documented vital signs Vital Signs Date Temp Pulse Resp B/P (MAP) Pulse Ox O2 O2 Flow FiO2 Time Delivery Rate 12/21/18 64 18 132/71 98 Room Air 16:56 (91) 12/21/18 98.2 16:41 Activity: WNL Respiratory function: WNL Cardiovascular function: WNL Mental status: Baseline Pain reasonably controlled: Yes Hydration appropriate: Yes Nausea/Vomiting absent: Yes JORDYN CULLEN Dec 21, 2018 18:42
[2018-12-22] VITALS (23 sets, daily range): BP systolic 93–144; BP diastolic 53–84; PULSE 60–90; RESP 12–20
[2018-12-22] MEDS: PIPER-TAZO 3.375 GM IV (PMX) 100 ML IVPB SCH ×4 (00:10→18:57)
[2018-12-22] MEDS: HYDROmorphONE 0.5 MG/0.5 ML SYG IV PRN ×5 (02:00→23:24)
--- NOTE | 2018-12-22 05:23 | NUR ---
EOSS: Patient AAOX4, stable hemodynamically, afebrile, cooperative. Pain well controlled with PRN medication.Currently patient resting comfortably in the bed with eyes closed in no distress, denies pain, denies SOB, denies nausea or vomiting. Patient NPO from midnight for surgery. Patient ambulatory, gait stable. All patient's needs attended. Continuous monitoring provided. Will report to the next shift.
[2018-12-22] MEDS: PANTOPRAZOLE 40 MG INJ IV SCH (05:33)
[2018-12-22] MEDS: DEXTROSE 5%-0.45% NACL 1,000 ML IV SCH ×2 (05:33→22:13)
[2018-12-22] MEDS ORDERED: FAMOTIDINE 20 MG INJ ONE (07:00)
--- NOTE | 2018-12-22 08:00 | NUR ---
PT RECEIVED IN BED. A,A,OX4. NOT IN ANY ACUTE DISTRESS. THE PLAN OF CARE DISCUSSED W/THE PT, VERBALIZED UNDERSTANDING,. CALL LIGHT IN REACH. PT ENCOURAGED TO CALL FOR ASSISTANCE. WILL CONT. MONITORING. WILL CONT. W/ THE PLAN OF CARE.
--- NOTE | 2018-12-22 09:11 | PN ---
Date/Time of Note Date/Time of Note DATE: 12/22/18 TIME: 09:11 Assessment/Plan VTE Prophylaxis Risk score (from Ns)>0 risk: 2 SCD applied (from Ns): Yes Pharmacological prophylaxis: NA/contraindicated Pharm contraindication: surgical contra Lines/Catheters IV Catheter Type (from Nrsg): Peripheral IV Assessment/Plan Assessment/Plan 1. RUQ pain with N/V - GI on board and appreciate consultation. EGD performed yesterday with findings of gastritis - Surgery on board and will plan for lap mandy this afternoon. - US from OSH showing gallstones but CBD normal and no sludge or GB wall thickening appreciated - HIDA scan ordered and negative for acute abnormalities - pain control 2. Obesity - dietary modification encouraged 3. Iron deficiency - iron levels noted - MCV 77 - will need iron supplements on discharge 4. Disposition - Plans for lap mandy today Result Diagram: 12/22/18 0420 12/22/18 0420 Results 24hrs Laboratory Tests Test 12/22/18 04:20 White Blood Count 10.2 Red Blood Count 4.58 Hemoglobin 11.2 L Hematocrit 35.7 L Mean Corpuscular Volume 77.9 L Mean Corpuscular Hemoglobin 24.5 L Mean Corpuscular Hemoglobin Concent 31.4 L Red Cell Distribution Width 14.7 H Platelet Count 279 Mean Platelet Volume 10.0 Immature Granulocytes % 0.300 Neutrophils % 64.1 Lymphocytes % 26.9 Monocytes % 6.6 Eosinophils % 1.9 Basophils % 0.2 Nucleated Red Blood Cells % 0.0 Immature Granulocytes # 0.030 Neutrophils # 6.5 Lymphocytes # 2.7 Monocytes # 0.7 Eosinophils # 0.2 Basophils # 0.0 Nucleated Red Blood Cells # 0.0 Sodium Level 145 H Potassium Level 3.6 Chloride Level 109 Carbon Dioxide Level 27 Anion Gap 9 Blood Urea Nitrogen 7 Creatinine 0.79 Est Glomerular Filtrat Rate mL/min > 60 Glucose Level 100 Calcium Level 8.8 Magnesium Level 2.2 Total Bilirubin 0.1 L Direct Bilirubin 0.00 Indirect Bilirubin 0.1 Aspartate Amino Transf (AST/SGOT) 32 Alanine Aminotransferase (ALT/SGPT) 27 Alkaline Phosphatase 85 Total Protein 6.9 Albumin 3.6 Globulin 3.30 H Albumin/Globulin Ratio 1.09 Subjective 24 Hr Interval Summary Free Text/Dictation Patient still with abdominal comfort and remains NPO. No acute overnight events. Plans for lap mandy this afternoon. Exam/Review of Systems Vital Signs Vitals Vital Signs Date Temp Pulse Resp B/P (MAP) Pulse Ox O2 O2 Flow FiO2 Time Delivery Rate 12/22/18 98.0 61 93/53 (66) 96 Room Air 07:40 12/22/18 17 02:17 Intake and Output 12/21/18 12/21/18 12/22/18 1515:00 23:00 07:00 IntakeIntake Total 680 ml 500 ml 1055 ml BalanceBalance 680 ml 500 ml 1055 ml Exam General: Pleasant female currently lying in bed in no acute distress Chest: Nontender Lungs: Clear to auscultation bilaterally no crackles rales or wheezing Heart: Normal S1-S2, Regular rhythm and rate. No murmur, S3, or S4 Abdomen: Morbidly obese, soft , right upper quadrant pain to palpation as well as epigastric pain to palpation, bowel sounds are present. No rebound or guarding Extremities: Normal to inspection, no edema no cyanosis Medications Medications Current Medications IV Flush (NS 3 ml) 3 ml PER PROTOCOL IV Last administered on 12/19/18at 22:37; Admin Dose 3 ML; Start 12/19/18 at 21:30 Ondansetron HCl (Zofran Inj) 4 mg Q6H PRN IV NAUSEA AND/OR VOMITING Last administered on 12/21/18 06:17; Admin Dose 4 MG; Start 12/19/18 at 21:30 Metoclopramide HCl (Reglan) 10 mg Q6H PRN IV NAUSEA AND/OR VOMITING Last administered on 12/21/18at 11:11; Admin Dose 10 MG; Start 12/19/18 at 21:30 Acetaminophen (Tylenol Tab) 650 mg Q6H PRN PO PAIN LEVEL 1-3 OR FEVER Last administered on 12/20/18 08:25; Admin Dose 650 MG; Start 12/19/18 at 21:30 Hydromorphone HCl (Dilaudid) 0.5 mg Q4H PRN IV SEVERE PAIN LEVEL 7-10 Last administered on 12/22/18 05:33; Admin Dose 0.5 MG; Start 12/19/18 at 21:30 Piperacillin Sod/ Tazobactam Sod 100 ml @ 200 mls/hr Q6 IVPB Last administered on 1/24/19at 05:32; Admin Dose 200 MLS/HR; Start 12/20/18 at 00:00 Morphine Sulfate (morphine SULFATE (PF)) 2 mg Q4H PRN IV PAIN LEVEL 4-6; Start 12/20/18 at 09:00 Acetaminophen/ Hydrocodone Bitart ([place] (5/325)) 1 tab Q4H PRN PO MODERATE PAIN LEVEL 4-6 Last administered on 12/20/18at 14:20; Admin Dose 1 TAB; Start 12/20/18 at 09:00 Dextrose/Sodium Chloride 1,000 ml @ 70 mls/hr [id number] IV Last administered on 12/22/18 05:33; Admin Dose 70 MLS/HR; Start 12/21/18 at 11:30 Pantoprazole (Protonix Iv) 40 mg DAILY@06 IV Last administered on 12/22/18 05:33; Admin Dose 40 MG; Start 12/22/18 at 06:00 ELAINE HERNANDEZ MD Dec 22, 2018 09:11
[2018-12-22] MEDS ORDERED: POTASSIUM CHLORIDE 100 ML IVPB ONE (13:00)
--- NOTE | 2018-12-22 13:00 | NUR ---
PT REFUSED TO RECEIVE KCL IV. NOTIFIED DR. HERNANDEZ. NO ORDERS GIVEN.
--- NOTE | 2018-12-22 15:49 | PN ---
Date/Time of Note Date/Time of Note DATE: 12/22/18 TIME: 15:46 Assessment/Plan VTE Prophylaxis Risk score (from Ns)>0 risk: 2 SCD applied (from Ns): Yes Pharmacological prophylaxis: other (scds) Lines/Catheters IV [facility]from [facility] Peripheral IV Assessment/Plan Hospital Course Summary Assessment and Plan: Assessment: Epigastric pain with excessive NSAID use EGD 12/21/18 Moderate gastritis, biopsies obtained Rule out H. pylori infection otherwise normal EGD Cholelithiasis -Consider symptomatic cholelithiasis versus other Microcytic anemia -chronic Obesity Plan: NPO for Lap cholecystectomy today Await biopsy results Continue PPI Avoid NSAIDs Patient is seen in collaboration with Dr. Gordon/Brianna Subjective: Course reviewed with nursing staff Patient interviewed and examined All labs, imaging and other results reviewed The patient feels well, NPO for lap cholecystectomy today discussed results of EGD - bx pending PHYSICAL EXAMINATION: GENERAL: Obese, alert & oriented x 3, in no acute distress SKIN: No lesions EYES: Pupils equal reactive to light, no discharge. EARS/NOSE AND THROAT: Ears normal, nose normal, oropharynx normal. NECK: Supple, no masses CHEST: Inspection within normal limits. CARDIOVASCULAR: Heart: Regular rate and rhythm RESPIRATORY: Lungs clear to auscultation GASTROINTESTINAL AND LIVER: Abdomen: Soft, epigastric pain, non-distended, no hernias, no masses, no organomegaly, no ascites, no guarding, no rebound tenderness, normoactive bowel sounds. Rectal: Deferred. GENITOURINARY:Female genitalia within normal limits. Result Diagram: 12/22/18 0420 12/22/18 0420 Results 24hrs Laboratory Tests Test 12/22/18 04:20 White Blood Count 10.2 Red Blood Count 4.58 Hemoglobin 11.2 L Hematocrit 35.7 L Mean Corpuscular Volume 77.9 L Mean Corpuscular Hemoglobin 24.5 L Mean Corpuscular Hemoglobin Concent 31.4 L Red Cell Distribution Width 14.7 H Platelet Count 279 Mean Platelet Volume 10.0 Immature Granulocytes % 0.300 Neutrophils % 64.1 Lymphocytes % 26.9 Monocytes % 6.6 Eosinophils % 1.9 Basophils % 0.2 Nucleated Red Blood Cells % 0.0 Immature Granulocytes # 0.030 Neutrophils # 6.5 Lymphocytes # 2.7 Monocytes # 0.7 Eosinophils # 0.2 Basophils # 0.0 Nucleated Red Blood Cells # 0.0 Sodium Level 145 H Potassium Level 3.6 Chloride Level 109 Carbon Dioxide Level 27 Anion Gap 9 Blood Urea Nitrogen 7 Creatinine 0.79 Est Glomerular Filtrat Rate mL/min > 60 Glucose Level 100 Calcium Level 8.8 Magnesium Level 2.2 Total Bilirubin 0.1 L Direct Bilirubin 0.00 Indirect Bilirubin 0.1 Aspartate Amino Transf (AST/SGOT) 32 Alanine Aminotransferase (ALT/SGPT) 27 Alkaline Phosphatase 85 Total Protein 6.9 Albumin 3.6 Globulin 3.30 H Albumin/Globulin Ratio 1.09 Exam/Review of Systems Exam Vitals Vital Signs Date Temp Pulse Resp B/P (MAP) Pulse Ox O2 O2 Flow FiO2 Time Delivery Rate 12/22/18 98.0 60 18 100/59 96 Room Air 14:24 (73) Intake and Output 12/21/18 12/21/18 12/22/18 1515:00 23:00 07:00 IntakeIntake Total 680 ml 500 ml 1055 ml BalanceBalance 680 ml 500 ml 1055 ml Results Results 24hrs Laboratory Tests Test 12/22/18 04:20 White Blood Count 10.2 Red Blood Count 4.58 Hemoglobin 11.2 L Hematocrit 35.7 L Mean Corpuscular Volume 77.9 L Mean Corpuscular Hemoglobin 24.5 L Mean Corpuscular Hemoglobin Concent 31.4 L Red Cell Distribution Width 14.7 H Platelet Count 279 Mean Platelet Volume 10.0 Immature Granulocytes % 0.300 Neutrophils % 64.1 Lymphocytes % 26.9 Monocytes % 6.6 Eosinophils % 1.9 Basophils % 0.2 Nucleated Red Blood Cells % 0.0 Immature Granulocytes # 0.030 Neutrophils # 6.5 Lymphocytes # 2.7 Monocytes # 0.7 Eosinophils # 0.2 Basophils # 0.0 Nucleated Red Blood Cells # 0.0 Sodium Level 145 H Potassium Level 3.6 Chloride Level 109 Carbon Dioxide Level 27 Anion Gap 9 Blood Urea Nitrogen 7 Creatinine 0.79 Est Glomerular Filtrat Rate mL/min > 60 Glucose Level 100 Calcium Level 8.8 Magnesium Level 2.2 Total Bilirubin 0.1 L Direct Bilirubin 0.00 Indirect Bilirubin 0.1 Aspartate Amino Transf (AST/SGOT) 32 Alanine Aminotransferase (ALT/SGPT) 27 Alkaline Phosphatase 85 Total Protein 6.9 Albumin 3.6 Globulin 3.30 H Albumin/Globulin Ratio 1.09 GOPAL ADAMES Dec 22, 2018 15:49
--- NOTE | 2018-12-22 16:30 | NUR ---
PT WAS TAKEN TO OR FOR SURGERY IN STABLE CONDITION. REPORT WAS GIVEN TO KAMLA RUEDA.
--- NOTE | 2018-12-22 18:30 | NUR ---
PT IS STILL IN SURGERY.
[2018-12-22] MEDS ORDERED: BUPIVACAINE 0.5%/EPI (SDV) 30 ML INJ INJ ONE (18:50)
--- NOTE | 2018-12-22 18:50 | NUR ---
HOLDING AREA TRANSFERRED PT TO PACU HOLDING TO WAIT FOR SURGERY, ACCOMPANIED WITH OR TRANSPORTER VIA [facility] IN STABLE CONDITION. REPORT CALLED TO [facility] CURATORKAMLA PATRICK.
--- NOTE | 2018-12-22 19:15 | NUR ---
REPORT WAS GIVEN TO KAMLA LUNA.
--- NOTE | 2018-12-22 19:25 | PREAC ---
Date/Time of Note Date/Time of Note DATE: 12/22/18 TIME: 19:24 Anesthesia Eval and Record Evaluation Time Pre-Procedure Interview DATE: 12/22/18 TIME: 19:24 Age 23 Sex female NPO: 8 hrs Preoperative diagnosis cholelithiasis Planned procedure laparoscopic cholecystectomy Past Medical History Past Medical History: Includes GI: Morbid obesity, Other (gastritis) Surgery & Anesthesia Issues No known issue Meds Anticoagulation: No Beta Deirdre within 24 hr: No Reason Beta Deirdre not given: Pt. not on B-Deirdre Current Medications IV Flush (NS 3 ml) 3 ml PER PROTOCOL IV Last administered on 12/19/18at 22:37; Admin Dose 3 ML; Start 12/19/18 at 21:30 Ondansetron HCl (Zofran Inj) 4 mg Q6H PRN IV NAUSEA AND/OR VOMITING Last admin istered on 12/21/18at 06:17; Admin Dose 4 MG; Start 12/19/18 at 21:30 Metoclopramide HCl (Reglan) 10 mg Q6H PRN IV NAUSEA AND/OR VOMITING Last administered on 12/21/18at 11:11; Admin Dose 10 MG; Start 12/19/18 at 21:30 Acetaminophen (Tylenol Tab) 650 mg Q6H PRN PO PAIN LEVEL 1-3 OR FEVER Last administered on 12/20/18at 08:25; Admin Dose 650 MG; Start 12/19/18 at 21:30 Hydromorphone HCl (Dilaudid) 0.5 mg Q4H PRN IV SEVERE PAIN LEVEL 7-10 Last administered on 12/22/18at 14:12; Admin Dose 0.5 MG; Start 12/19/18 at 21:30 Piperacillin Sod/ Tazobactam Sod 100 ml @ 200 mls/hr Q6 IVPB Last administered on 12/22/18at 18:57; Admin Dose 200 MLS/HR; Start 12/20/18 at 00:00 Morphine Sulfate (morphine SULFATE (PF)) 2 mg Q4H PRN IV PAIN LEVEL 4-6; Start 12/20/18 at 09:00 Acetaminophen/ Hydrocodone Bitart ([place] (5/325)) 1 tab Q4H PRN PO MODERATE PAIN LEVEL 4-6 Last administered on 12/20/18at 14:20; Admin Dose 1 TAB; Start 12/20/18 at 09:00 Dextrose/Sodium Chloride 1,000 ml @ 70 mls/hr [id number] IV Last administered on 12/22/18at 05:33; Admin Dose 70 MLS/HR; Start 12/21/18 at 11:30 Pantoprazole (Protonix Iv) 40 mg DAILY@06 IV Last administered on 12/22/18at 05:33; Admin Dose 40 MG; Start 12/22/18 at 06:00 Meds reviewed: Yes Allergies Coded Allergies: No Known Allergies (Verified Allergy, Unknown, 12/19/18) Allergies Reviewed: Yes Labs/Studies Labs Reviewed: Reviewed by anesthesiologist Result Diagram: 12/22/18 0420 12/22/18 042 Laboratory Tests 12/22/18 04:20 test: Negative Pre-procedure Exam Last vitals Vital Signs Date Temp Pulse Resp B/P (MAP) Pulse Ox O2 O2 Flow FiO2 Time Delivery Rate 12/22/18 98.0 60 18 100/59 96 Room Air 14:24 (73) Airway: Adequate mouth opening, Adequate thyromental dist Mallampati: Mallampati II Teeth: Normal Lung: Normal Heart: Normal ASA Physical Status ASA physical status: 3 Emergency: None Planned Anesthetic General/MAC: ETT Nerve block: TAP (bilateral) Planned Pain Management Single shot nerve block, Parenteral pain med Pre-operative Attestations Prior to commencing anesthesia and surgery, the patient was re-evaluated, there was verification of: *The patient's identity *The results of appropriate recent lab work and preoperative vital signs *The above evaluation not changing prior to induction *Anesthetic plan, risk benefits, alternative and complications discussed with patient/family; questions answered; patient/family understands, accepts and wishes to proceed. RICO QUIROZ MD Dec 22, 2018 19:25
[2018-12-22] MEDS ORDERED: ONDANSETRON 4 MG INJ IV PRN ×2 (19:30→21:00)
[2018-12-22] MEDS ORDERED: PROCHLORPERAZINE 10 MG INJ IV PRN (19:30)
[2018-12-22] MEDS ORDERED: HYDROmorphONE 1 MG/5 ML IV SYRINGE IV PRN ×3 (19:30)
[2018-12-22] MEDS ORDERED: DIPHENHYDRAMINE 50 MG INJ IV PRN (19:30)
[2018-12-22] MEDS ORDERED: MEPERIDINE 25 MG INJ IV PRN (19:30)
[2018-12-22] MEDS ORDERED: FENTAnyl 50 MCG/ML VIAL IV PRN ×3 (19:30)
[2018-12-22] MEDS ORDERED: ROCURONIUM 50 MG INJ ONE (19:35)
[2018-12-22] MEDS ORDERED: FENTAnyl 50 MCG/ML VIAL ONE (19:35)
[2018-12-22] MEDS ORDERED: SUCCINYLCHOLINE CHLORIDE 100 MG/5 ML SYG IV ONE (19:35)
[2018-12-22] MEDS ORDERED: PROPOFOL 20 ML ONE (19:35)
[2018-12-22] MEDS ORDERED: LIDOCAINE 2% (SDV) 5 ML INJ ONE (19:35)
[2018-12-22] MEDS ORDERED: MIDAZOLAM 1 MG/ML 2 ML INJ ONE (19:36)
[2018-12-22] MEDS ORDERED: ONDANSETRON 4 MG INJ ONE (19:47)
[2018-12-22] MEDS ORDERED: DEXAMETHASONE 4 MG/ML 5 ML INJ ONE (19:47)
[2018-12-22] MEDS ORDERED: PHENYLephrine (100 MCG/ML) 5ML SYG ONE (19:47)
[2018-12-22] MEDS ORDERED: ROPIVACAINE 0.5 % 30 ML VIAL ONE (19:58)
[2018-12-22] MEDS ORDERED: HYDROmorphONE 2 MG/ML SYG ONE (20:14)
--- NOTE | 2018-12-22 20:40 | OPR ---
Date/Time of Note Date/Time of Note DATE: 12/22/18 TIME: 20:34 Operative Report Procedure Date: Dec 22, 2018 Preoperative Diagnosis Cholecystitis with intractable postprandial abdominal pain Postoperative Diagnosis Cholecystitis and cholelithiasis with postprandial intractable abdominal pain Operation/Procedure Performed 1. Laparoscopic cholecystectomy 2. Placement of drain Surgeon Vianey Rincon MD Ict Development Manager None Anesthesia Type: general Anesthesiologist: RICO QUIROZ MD Estimated Blood Loss: minimal Transfusion none Specimen Gallbladder Grafts/Implants none Tubes/Drains #19 Round Ace drain Complications none Pt Condition Post Procedure: stable Disposition: PACU Indications Intractable postprandial nominal pain and nausea Procedure Description After satisfactory general endotracheal anesthesia was achieved, the abdomen was prepped and draped in the usual fashion. The abdomen was insufflated with carbon dioxide through an umbilical Veress needle to 15 mmHg pressure. The Veress needle was removed and the umbilical incision extended to 5 mm through which a 5 mm trocar was placed. A 5 mm 0 degree lens was placed. Laparoscopy showed a distended gallbladder. Under direct visualization an 11 mm epigastric trocar was placed as well as 2 more 5 mm right lateral trochars. The dome of the gallbladder was grasped and retracted superiorly. The distal gallbladder was freed of adhesions with blunt and electrocautery dissection, enabling Elkins's pouch to be grasped and retracted inferolaterally. The hepatoduodenal ligament was carefully dissected. The cystic duct was quadruply hemoclipped and divided high at the junction of the gallbladder and the cystic duct. The cystic artery was divided over 2 clips. The gallbladder was then dissected from below using electrocautery dissection and placed fully intact into an Endo Catch removed by the epigastric route. Hemostasis of the liver bed was total and irrigant returned clear the abdomen was then desufflated and all trochars were removed. The fascia of the epigastrium was closed with a single suture of 0 Vicryl. The skin punctures were infiltrated with 20 cc of 0.25% Marcaine with epinephrine and closed with tl. Sponge and needle counts were reported as correct x2. VIANEY RINCON MD Dec 22, 2018 20:40
[2018-12-22] MEDS ORDERED: NEOSTIGMINE 3 MG/3 ML SYRINGE ONE (20:44)
[2018-12-22] MEDS ORDERED: GLYCOPYRROLATE 1 MG INJ ONE (20:44)
--- NOTE | 2018-12-22 20:51 | NUR ---
NURSING RR RECEIVED PT FROM OR NOT IN ANY DISTRESS ,PT S/P LAP CHOLECYSTECTOMY . THREE LAP INCISION TO ABDOMEN WITH BANDAGE CLEAN AND DRY .IV TI R FA G 20 NEEDLE WITH LR INFUSING WELL .
[2018-12-22] MEDS ORDERED: OXYCODONE/ACETAMINOPHEN (5/325) TAB PO PRN (21:00)
[2018-12-22] MEDS ORDERED: morphine 4 MG/ML VIAL IV PRN (21:00)
--- NOTE | 2018-12-22 21:01 | PAC ---
Date/Time of Note Date/Time of Note DATE: 12/22/18 TIME: 21:01 Post-Anesthesia Notes Post-Anesthesia Note Last documented vital signs Vital Signs Date Temp Pulse Resp B/P (MAP) Pulse Ox O2 O2 Flow FiO2 Time Delivery Rate 12/22/18 98.0 60 18 100/59 96 Room Air 14:24 (73) Activity: WNL Respiratory function: WNL Cardiovascular function: WNL Mental status: Baseline Pain reasonably controlled: Yes Hydration appropriate: Yes Nausea/Vomiting absent: Yes Comments BP: 118/68 HR: 99 RR: 15 T: 98 SaO2: 99% RICO QUIROZ MD Dec 22, 2018 21:01
--- NOTE | 2018-12-22 22:31 | NUR ---
RN NOTE: Patient transferred from PACU, awake, alert, oriented x4, not in distress, VSS. Patient denies pain,denies nausea,denies SOB or other discomfort. surgical site: lap site x3 covered with band aid, dressing dry and intact, no swelling,no tenderness or redness around the incision sites. Patient has IKE drain on RUQ, draining 10 ml of serosanguineous content. Patient started with clear liquid diet, so far tolerates it well, will advance toward the regular as ordered and as tolerated. Patient due to void. at the bedside,supportive.
[2018-12-23] MEDS: HYDROmorphONE 0.5 MG/0.5 ML SYG IV PRN (03:38)
[2018-12-23] MEDS: PANTOPRAZOLE 40 MG INJ IV SCH (05:42)
[2018-12-23] MEDS: OXYCODONE/ACETAMINOPHEN (5/325) TAB PO PRN ×3 (05:43→15:25)
--- NOTE | 2018-12-23 06:03 | NUR ---
EOSS: Patient AAOX4, stable hemodynamically,afebrile, cooperative. Currently patient resting comfortably in the bed with eyes open in no distress, denies SOB, denies nausea or vomiting. Patient tolerates regular diet well. Pain managed with PRN medication with good relief. All scheduled medications administered as ordered. Patient assisted to the bathroom and voided adequate amount clear yellow urine x 2. All patient's needs attended. Continuous monitoring provided. Will report to the next shift.
[2018-12-23 07:42] VITALS: BP 109/59; PULSE 60; RESP 18
--- NOTE | 2018-12-23 11:38 | PN ---
Date/Time of Note Date/Time of Note DATE: 12/23/18 TIME: 11:38 Assessment/Plan VTE Prophylaxis Risk score (from Ns)>0 risk: 3 SCD applied (from Ns): Yes Pharmacological prophylaxis: NA/contraindicated Pharm contraindication: surgical contra Lines/Catheters IV C[facility]ter Type (from [facility] Saline Lock Assessment/Plan Assessment/Plan 1. Symptomatic cholelithiasis s/p lap cholecystectomy - Surgery on board and appreciate consultation - US from OSH showing gallstones but CBD normal and no sludge or GB wall thickening appreciated - HIDA scan ordered and negative for acute abnormalities - pain control 2. Gastritis - continue PPI - GI on board and recommendations appreciated. EGD results noted 3. Iron deficiency - iron levels noted - MCV 77 - will need iron supplements on discharge 4. Disposition - Medically stable for discharge home Result Diagram: 12/23/184 12/23/184 Results 24hrs Laboratory Tests Test 12/23/18 04:24 White Blood Count 12.4 #H Red Blood Count 4.99 Hemoglobin 12.4 Hematocrit 38.7 Mean Corpuscular Volume 77.6 L Mean Corpuscular Hemoglobin 24.8 L Mean Corpuscular Hemoglobin Concent 32.0 Red Cell Distribution Width 14.4 Platelet Count 304 Mean Platelet Volume 9.7 Immature Granulocytes % 0.500 H Neutrophils % 93.9 H Lymphocytes % 4.8 L Monocytes % 0.7 Eosinophils % 0.0 Basophils % 0.1 Nucleated Red Blood Cells % 0.0 Immature Granulocytes # 0.060 H Neutrophils # 11.7 H Lymphocytes # 0.6 L Monocytes # 0.1 L Eosinophils # 0.0 Basophils # 0.0 Nucleated Red Blood Cells # 0.0 Sodium Level 144 Potassium Level 3.5 Chloride Level 108 Carbon Dioxide Level 21 Anion Gap 15 H Blood Urea Nitrogen 5 L Creatinine 0.56 Est Glomerular Filtrat Rate mL/min > 60 Glucose Level 131 Calcium Level 9.4 Magnesium Level 2.2 Total Bilirubin 0.1 L Direct Bilirubin 0.00 Indirect Bilirubin 0.1 Aspartate Amino Transf (AST/SGOT) 55 H Alanine Aminotransferase (ALT/SGPT) 45 Alkaline Phosphatase 100 Total Protein 7.8 Albumin 4.2 Globulin 3.60 H Albumin/Globulin Ratio 1.16 Subjective 24 Hr Interval Summary Free Text/Dictation Patient doing well and IKE drain with decreasing output. No acute overnight events. Tolerating PO intake. Exam/Review of Systems Exam Vitals Vital Signs Date Temp Pulse Resp B/P (MAP) Pulse Ox O2 O2 Flow FiO2 Time Delivery Rate 12/23/18 98.2 60 18 109/59 Room Air 07:42 (76) 12/22/18 96 23:54 12/22/18 2.0 23:15 Intake and Output 12/22/18 12/22/18 12/23/18 1515:00 23:00 07:00 IntakeIntake Total 400 ml 1450 ml 725 ml OutputOutput Total 20 ml 25 ml BalanceBalance 400 ml 1430 ml 700 ml Physical exam General: Pleasant female currently lying in bed in no acute distress Chest: Nontender Lungs: Clear to auscultation bilaterally no crackles rales or wheezing Heart: Normal S1-S2, Regular rhythm and rate. No murmur, S3, or S4 Abdomen: Morbidly obese, soft , RUQ discomfort to palpation. IKE drain with serosanguineous drainage.bowel sounds are present. No rebound or guarding Extremities: Normal to inspection, no edema no cyanosis Results Results 24hrs Laboratory Tests Test 12/23/18 04:24 White Blood Count 12.4 #H Red Blood Count 4.99 Hemoglobin 12.4 Hematocrit 38.7 Mean Corpuscular Volume 77.6 L Mean Corpuscular Hemoglobin 24.8 L Mean Corpuscular Hemoglobin Concent 32.0 Red Cell Distribution Width 14.4 Platelet Count 304 Mean Platelet Volume 9.7 Immature Granulocytes % 0.500 H Neutrophils % 93.9 H Lymphocytes % 4.8 L Monocytes % 0.7 Eosinophils % 0.0 Basophils % 0.1 Nucleated Red Blood Cells % 0.0 Immature Granulocytes # 0.060 H Neutrophils # 11.7 H Lymphocytes # 0.6 L Monocytes # 0.1 L Eosinophils # 0.0 Basophils # 0.0 Nucleated Red Blood Cells # 0.0 Sodium Level 144 Potassium Level 3.5 Chloride Level 108 Carbon Dioxide Level 21 Anion Gap 15 H Blood Urea Nitrogen 5 L Creatinine 0.56 Est Glomerular Filtrat Rate mL/min > 60 Glucose Level 131 Calcium Level 9.4 Magnesium Level 2.2 Total Bilirubin 0.1 L Direct Bilirubin 0.00 Indirect Bilirubin 0.1 Aspartate Amino Transf (AST/SGOT) 55 H Alanine Aminotransferase (ALT/SGPT) 45 Alkaline Phosphatase 100 Total Protein 7.8 Albumin 4.2 Globulin 3.60 H Albumin/Globulin Ratio 1.16 ELAINE HERNANDEZ MD Dec 23, 2018 11:38
--- NOTE | 2018-12-23 13:38 | QN ---
Documentation Comment Postoperative day #1 Markedly symptomatically improved Abdominal examination is benign IKE drainage minimal serosanguineous LFTs are normal Plan: IKE drain removed at bedside. Patient is cleared for discharge home today. I will see the patient in 1 week for staple removal VIANEY RINCON MD Dec 23, 2018 13:38
[2018-12-23 14:20] VITALS: BP 118/62; PULSE 66; RESP 18
[2018-12-23] MEDS ORDERED: PANT40TA4 PO (15:03)
[2018-12-23] MEDS ORDERED: FERR325T5 PO (15:03)
[2018-12-23] MEDS ORDERED: HYDR-3601 PO (15:03)
--- NOTE | 2018-12-23 15:06 | PDOCDIS ---
Discharge Instructions DIAGNOSIS Discharge Diagnosis 1. Symptomatic cholelithiasis s/p lap cholecystectomy 2. Gastritis 3. Iron deficiency CONDITION [id number] Patient Condition: Lplep0h Stable HOME CARE INSTRUCTIONS: [id number] Diet Instructions: [id number] Low Fat /Cholesterol ACTIVITY: [id number] Activity Restrictions: Pevlo0p No Restrictions FOLLOW UP/APPOINTMENTS Follow-up Plan 1. Follow up with your primary care physician in 1-2 weeks 2. Follow up with Dr. Ramsey in 1 week for staple removal 3. Take iron supplements daily. This is cause constipation and your stool may be black. Keep well hydrate and increase fiber in your diet if experiencing constipation 4. Take Pantoprazole for 8 weeks daily and then you can continue taking only as needed for reflux symptoms 5. Avoid baths, jacuzzis, or swimming for the next 10 days. 6. Do not life more than 25 lbs for the next 4 weeks 7. If symptoms worsen, go to your closest emergency department REFERRALS Other Referrals Tristan Ramsey MD Specialty: General Surgery Comments Office Address [address] [place] [address] [place] [address] Office ELAINE HERNANDEZ MD Dec 23, 2018 15:06
--- NOTE | 2018-12-23 17:37 | NUR ---
DISCHARGE NOTE: PATIENT STABLE FOR DISCHARGE, NO C/O PAIN AT THIS TIME, TOLERATED DIET WELL, LAP SITES X 3 C/D/I, ZANE IN PLACE, IKE DRAIN WAS D/C'ED BY DR. RINCON, DRESSING C/D/I, ALL INSTRUCTIONS, PHS, TEACHING AND PRESCRIPTIONS FOR HOME GIVEN, PATIENT VERBALIZED UNDERSTANDING, PATIENT DISCHARGED VIA WHEELCHAIR BY VOLUNTEER.
--- NOTE | 2018-12-23 17:52 | DS ---
Date/Time of Note Date/Time of Note DATE: 12/23/18 TIME: 17:50 Discharge Summary Admission/Discharge Info Admit Date/Time Dec 21, 2018 at 13:42 Discharge Date/Time Dec 23, 2018 at 17:33 Discharge Diagnosis 1. Symptomatic cholelithiasis s/p lap cholecystectomy 2. Gastritis 3. Iron deficiency Patient Condition: Stable Consults GI- Dr. Gordon Surgery- Dr. Ramsey Procedures PROCEDURE: Nuclear medicine hepatobiliary scan CLINICAL INDICATION: Right upper quadrant pain. Gallstones. TECHNIQUE: 8.1 mCi of technetium-99m Choletec was administered intravenously. Planar imaging of the hepatobiliary system was performed. Delayed images were obtained. Images were reviewed on the high resolution PACS workstation. COMPARISON: None available FINDINGS: There is normal and homogeneous uptake throughout the hepatobiliary system. There is normal emptying of radiotracer into the biliary tract. The common bile duct is normal. The gallbladder is visualized at 15 minutes. There is visualization of the small bowel at 30 minutes. IMPRESSION: 1. Negative hepatobiliary scan. There is normal filling of the gallbladder. 2. Patent common bile duct with normal visualization of the small bowel. RPTAT: AACC Physician Christine Date Time Electronically viewed and signed by Pablo Horowitz Physician on 12/20/2018 11:16 1. EGD 2. Lap Cholecystectomy Hx of Present Illness Chief complaint: Epigastric pain times 2 days This is a 23-year-old female states that 2 days ago drank 4 beers tolerating a family member's birthday and started experiencing abdominal pain.. She began having epigastric pain when she was getting ready for work yesterday. The pain lasted for a few minutes but then the pain got worse. It is nonradiating. She does report nausea. Denies any vomiting. No fevers chills or cough or sore throat. She has had this pain on and off for the last 2-3 years. Pertinent laboratory findings from transfer facility showed: White blood cells 10.4 creatinine 0.55 alk phos 103 lipase 128, leukoesterase 3+, ultrasound of the abdomen showed: Cholelithiasis without pericholecystic fluid or wall thickening or discomfort exhibited by patient. Normal duct. Hospital Course Patient was admitted for workup of RUQ pain. HIDA scan was negative and attempts to feed patient were unsuccessful. She was evaluated by GI and underwent EGD with findings of gastritis. General surgery was consulted and performed lap mandy with no acute complications. IKE drain was removed and she was tolerating PO diet. Patients presenting symptoms improved and on day of discharge patients vitals and physical exam were optimal. Patient was discharged home in stable condition. Home Meds Active Scripts Ferrous Sulfate (Ferrous Sulfate) 325 Mg Tablet.dr, 325 MG PO DAILY for 30 Days, #30 TAB 6 Refills Prov:ELAINE HERNANDEZ MD 12/23/18 Pantoprazole (Protonix) 40 Mg Tabec, 40 MG PO DAILY for 30 Days, #30 TAB 2 Refills Prov:ELAINE HERNANDEZ MD 12/23/18 Hydrocodone Bit-Acetaminophen (Hydrocodone Bit-APAP) 5-325MG Tablet, 1 TAB PO Q6 PRN for MODERATE PAIN LEVEL 4-6 for 3 Days, #15 TAB Prov:ELAINE HERNANDEZ MD 12/23/18 Follow-up Plan 1. Follow up with your primary care physician in 1-2 weeks 2. Follow up with Dr. Ramsey in 1 week for staple removal 3. Take iron supplements daily. This is cause constipation and your stool may be black. Keep well hydrate and increase fiber in your diet if experiencing constipation 4. Take Pantoprazole for 8 weeks daily and then you can continue taking only as needed for reflux symptoms 5. Avoid baths, jacuzzis, or swimming for the next 10 days. 6. Do not life more than 25 lbs for the next 4 weeks 7. If symptoms worsen, go to your closest emergency department Primary Care Provider Not On Staff Doctor Time spent on discharge: > 30 minutes Pending Labs Laboratory Tests Test 12/23/18 04:24 White Blood Count 12.4 10^3/ul (4.8-10.8) Red Blood Count 4.99 10^6/ul (4.20-5.40) Hemoglobin 12.4 g/dl (12.0-16.0) Hematocrit 38.7 % (37.0-47.0) Mean Corpuscular Volume 77.6 fl (82.0-101.0) Mean Corpuscular Hemoglobin 24.8 pg (29.0-33.0) Mean Corpuscular Hemoglobin Concent 32.0 g/dl (32.0-37.0) Red Cell Distribution Width 14.4 % (11.5-14.5) Platelet Count 304 10^3/UL (140-415) Mean Platelet Volume 9.7 fl (7.4-10.4) Immature Granulocytes % 0.500 % (0.001-0.429) Neutrophils % 93.9 % (39.0-77.0) Lymphocytes % 4.8 % (15.0-51.0) Monocytes % 0.7 % (0.0-11.0) Eosinophils % 0.0 % (0.0-7.0) Basophils % 0.1 % (0.0-2.0) Nucleated Red Blood Cells % 0.0 /100WBC (0.0-0.0) Immature Granulocytes # 0.060 10^3/ul (0.0-0.031) Neutrophils # 11.7 10^3/ul (1.6-7.5) Lymphocytes # 0.6 10^3/ul (0.8-2.9) Monocytes # 0.1 10^3/ul (0.3-0.9) Eosinophils # 0.0 10^3/ul (0.0-0.5) Basophils # 0.0 10^3/ul (0.0-0.1) Nucleated Red Blood Cells # 0.0 10^3/ul (0.0-0.0) Sodium Level 144 mmol/L (135-144) Potassium Level 3.5 mmol/L (3.5-5.1) Chloride Level 108 mmol/L (97-110) Carbon Dioxide Level 21 mmol/L (21-31) Anion Gap 15 (5-13) Blood Urea Nitrogen 5 mg/dl (7-20) Creatinine 0.56 mg/dl (0.44-1.00) Est Glomerular Filtrat Rate mL/min > 60 mL/min (>60) Glucose Level 131 mg/dl (70-220) Calcium Level 9.4 mg/dl (8.4-10.2) Magnesium Level 2.2 mg/dl (1.7-2.5) Total Bilirubin 0.1 mg/dl (0.2-1.3) Direct Bilirubin 0.00 mg/dl (0.00-0.20) Indirect Bilirubin 0.1 mg/dl (0-1.1) Aspartate Amino Transf (AST/SGOT) 55 IU/L (15-46) Alanine Aminotransferase (ALT/SGPT) 45 IU/L (13-69) Alkaline Phosphatase 100 IU/L (42-121) Total Protein 7.8 g/dl (6.1-8.1) Albumin 4.2 g/dl (3.3-4.9) Globulin 3.60 g/dl (1.3-3.2) Albumin/Globulin Ratio 1.16 ELAINE HERNANDEZ MD Dec 23, 2018 17:52
== END 2018-12-23 17:33 | disposition home or self-care (01) | DRG 418 ==
LOC: INTOOBSV 20:15 → MS1 20:15 → OBSVTOIN 12-21 13:42
PROVIDERS: ADMIT Internal Medicine; ATTEND Internal Medicine
PROC: 0DB68ZX Excision of Stomach, Via Natural or Artificial Opening Endoscopic, Diagnostic (ICD-10-PCS; 2018-12-21)
PROC: 0FT44ZZ Resection of Gallbladder, Percutaneous Endoscopic Approach (ICD-10-PCS; principal; 2018-12-22 17:30)
DX: K80.10 Calculus of gallbladder with chronic cholecystitis without obstruction (principal); Z68.41 Body mass index [BMI] 40.0-44.9, adult; E66.01 Morbid (severe) obesity due to excess calories; D50.8 Other iron deficiency anemias; K29.70 Gastritis, unspecified, without bleeding
CPT/HCPCS: 78226; 80053; 80061; 82728; 83036; 83540; 83735; 84443; 84703; 85025; 88304; 88305; 88312; 88341; 88342; A9537; C9113; G0378; J1100; J1170; J2250; J2370; J2405; J2543; J2710; J2765; J2795; J2805; J3010; J3480; J7030; J7042